=== PATIENT | male | born 1990 | race Two or more races ===

== ENCOUNTER 2018-08-17 16:22 | Emergency (ER) | payer OTHER ==
[2018-08-17 16:39] VITALS: BP 129/85; PULSE 78; TEMP 98.3; BMI 36.6
--- NOTE | 2018-08-17 17:38 | PDOC ---
History of Present Illness - General Chief Complaint: Injury Stated Complaint: FALL Time Seen by Provider: 08/17/18 17:31 History Source: Patient Exam Limitations: No Limitations - History of Present Illness Initial Comments: 08/17/18 18:25 HISTORY OF PRESENT ILLNESS: This is a 27-year-old male without significant medical history presents emergency Department with right knee pain and left wrist and forearm pain status post slip and fall while at work yesterday. Patient states there was some water on the floor and when he stepped down onto the water he slipped falling to the ground landing on an extended left arm with his right knee folded under him striking the ground. Patient states was immediately ambulatory after the injury and is taken Motrin for pain relief which is been successful in relieving his pain. No recent travel or sick contacts. PAST MEDICAL HISTORY: Denies past medical history SURGICAL HISTORY: Denies ALLERGIES: No known drug allergies REVIEW OF SYSTEMS General/Constitutional: Denies fever or chills. Denies weakness, weight change. HEENT: Denies change in vision. Denies ear pain or discharge. Denies sore throat. Cardiovascular: Denies chest pain or shortness of breath. Respiratory: Denies cough, wheezing, or hemoptysis. Gastrointestinal: Denies nausea, vomiting, diarrhea or constipation. Denies rectal bleeding. Genitourinary: Denies dysuria, frequency, or change in urination. Musculoskeletal: Denies joint or muscle swelling or pain. Denies neck or back pain. Skin and breasts: Denies rash or easy bruising. Neurologic: Denies headache, vertigo, loss of consciousness, or loss of sensation. Psychiatric: Denies depression or anxiety. Endocrine: Denies increased thirst. Denies abnormal weight change. Hematologic/Lymphatic: Denies anemia, easy bleeding, or history of blood clots. Allergic/Immunologic: Denies hives or skin allergy. Denies latex allergy. PHYSICAL EXAM General Appearance: Well-appearing, appropriately dressed. No apparent distress , no intoxication. HEENT: EOMI, PERRLA, normal ENT inspection, normal voice, TMs normal, pharynx normal. No conjunctival pallor. No photophobia, scleral icterus. Neck: Supple. Trachea midline. No tenderness, rigidity, carotid bruit, stridor , lymphadenopathy, or thyromegaly. Respiratory/Chest: Lungs CTAB. No shortness of breath, chest tenderness, respiratory distress, accessory muscle use. No crackles, rales, rhonchi, stridor , wheezing, dullness Cardiovascular: RRR. S1, S2. No JVD, murmur, bradycardia, tachycardia. Vascular Pulses: Dorsalis-Pedis (R): 2+, Dorsalis-Pedis (L): 2+ Gastrointestinal/Abdominal: Normal bowel sounds. Abdomen soft, non-distended. No tenderness or rebound tenderness. No organomegaly, pulsatile mass, guarding, hernia, hepatomegaly, splenomegaly. Lymphatic: No adenopathy, tenderness. Musculoskeletal/Extremities: Normal inspection. FROM of all extremities, normal capillary refill. Pelvis Stable. No CVA tenderness. No pedal edema, swelling, erythema or deformity. TTP at right anterior knee immediately inferior to patella. Patella is mobile. -Héctor's test. Integumentary: Appropriate color, dry, warm. No cyanosis, erythema, jaundice or rash Neurologic: personal lines insurance agent II-XII intact. Fully oriented, alert. Appropriate mood/affect. Motor strength 5/5. No appreciable EOM palsy, facial droop or sensory deficit. Past History - Past Medical History Allergies/Adverse Reactions: Allergies Allergy/AdvReac Type Severity Reaction Status Date / Time No Known Allergies Allergy Verified 08/17/18 16:35 Home Medications: Ambulatory Orders NK [No Known Home Medication] 08/17/18 COPD: No - Suicide/Smoking/Psychosocial Hx Smoking History: Never smoked Have you smoked in the past 12 months: No Information on smoking cessation initiated: No Hx Alcohol Use: No Drug/Substance Use Hx: No Substance Use Type: None *Physical Exam - Vital Signs Last Vital Signs Temp Pulse Resp BP Pulse Ox 98.3 F 78 18 129/85 100 08/17/18 16:35 08/17/18 16:35 08/17/18 16:35 08/17/18 16:35 08/17/18 16:35 Medical Decision Making - Medical Decision Making 08/17/18 17:39 A/P: 27-year-old male with right knee pain and left wrist pain status post slip and fall on 08/16 Tenderness to the right anterior proximal tibia on palpation no deformities, crepitus Full range of motion of right knee Full range of motion of left wrist No tenderness to palpation of bony structures of the left hand, wrist or forearm X-rays, reassess 08/17/18 18:19 X-rays of left wrist and forearm as read by me: No acute fractures or dislocations present. X-ray of right knee as read by me no acute dislocations present. Questionable fracture to the anterior surface of the tibia only seen in the lateral view. Results of x-rays have been discussed with the patient verbalizes understanding of discharge instructions. *DC/Admit/Observation/Transfer Diagnosis at time of Disposition: Knee pain, right anterior Wrist pain, acute Qualifiers: Laterality: left Qualified Code(s): M25.532 - Pain in left wrist - Discharge Dispostion Disposition: HOME Condition at time of disposition: Stable Decision to Admit order: No - Referrals Referrals: Jus Monroy MD [Primary Care Provider] - Wu Kirby MD [Staff Physician] - - Patient Instructions Additional Instructions: Take Tylenol or Motrin as needed for pain. Follow manufacturers instructions for appropriate dosage. Apply ice for 20 minutes and removed for at least 20 minutes before reapplying the ice. You've been given the number for an orthopedist. If symptoms do not resolve within the next 7 days call the orthopedist for further evaluation. Return to emergency department for any concerns. Thank you very much for choosing us to provide your emergent healthcare needs. - Post Discharge Activity
== END 2018-08-17 18:37 | disposition home or self-care (01) ==
LOC: JERFT 16:22
DX: M25.561 Pain in right knee (principal); M25.532 Pain in left wrist; M79.632 Pain in left forearm; W01.0XXA Fall on same level from slipping, tripping and stumbling without subsequent striking against object, initial encounter; Y93.89 Activity, other specified; Y92.511 Restaurant or cafe as the place of occurrence of the external cause; Y99.0 Civilian activity done for income or pay
CPT/HCPCS: 73090-TC-LT-FY; 73110-TC-LR-FY; 73130-TC-LR-FY; 73562-TC-RT-FY; 99281-25

== ENCOUNTER 2021-08-10 18:00 | Emergency (ER) | payer OTHER ==
[2021-08-10 18:30] VITALS: BP 139/77; PULSE 75; TEMP 98.9; BMI 35.2
[2021-08-10] MEDS ORDERED: NAPROXEN 500 MG TABLET PO ONE (18:32)
[2021-08-10] MEDS ORDERED: NAPROXEN 500 MG TABLET ONE (19:08)
== END 2021-08-10 19:18 | disposition home or self-care (01) ==
LOC: FER 18:00
DX: M25.561 Pain in right knee (principal); W01.0XXA Fall on same level from slipping, tripping and stumbling without subsequent striking against object, initial encounter
CPT/HCPCS: 73562-TC-RT-FY; 99283-25